=== PATIENT | male | born 1955 | race Caucasian/White ===

== ENCOUNTER → 2017-07-31 11:59 | Outpatient (REF) | payer OTHER, SELFPAY ==
[2017-07-31 16:07] LABS: T4 (Thyroxine) 8.4 ug/dl (4.7-13.3)
[2017-08-02 08:31] LABS: Thyroid Peroxidase Antibodies 9 IU/mL (0-34)
[2017-08-03 10:41] LABS: Estradiol 24.7 pg/mL (7.6-42.6); Triiodothyronine (T3) Free 3.4 pg/mL (2.0-4.4); Vitamin D 25 Hydroxy 26.1 ng/mL (30.0-100.0)
[2017-08-05 18:47] LABS: Testosterone,Free 5.3 pg/mL (6.6-18.1)
[2017-08-07 06:02] LABS: Testosterone, Total, LC/MS 296.1 ng/dL (264.0-916.0)
== END ==
LOC: LAB 11:59
PROVIDERS: Visit Provider Anesthesiology
DX: E03.4 Atrophy of thyroid (acquired) (principal); E07.89 Other specified disorders of thyroid; E34.9 Endocrine disorder, unspecified
CPT/HCPCS: 82652; 82670; 84402; 84436; 84481; 86376

== ENCOUNTER → 2017-11-08 17:59 | Outpatient (CLI) | payer OTHER, SELFPAY ==
[2017-11-08 22:28] LABS: Chol/HDL Ratio 5.1 (1-3.5); Cholesterol 167 mg/dL (140-200); HDL Cholesterol 33 mg/dL (27-67); LDL Cholesterol 96 mg/dL (0-130); Triglycerides 189 mg/dL (30-200); VLDL Cholesterol 38 mg/dL (0-40)
[2017-11-10 18:03] LABS: Estradiol 46.4 pg/mL (7.6-42.6); Testosterone,Free 19.4 pg/mL (6.6-18.1)
[2017-11-14 16:48] LABS: Testosterone, Total, LC/MS 882.8 ng/dL (264.0-916.0)
== END ==
PROVIDERS: Visit Provider Anesthesiology
DX: E03.4 Atrophy of thyroid (acquired) (principal); E07.89 Other specified disorders of thyroid; K63.9 Disease of intestine, unspecified
CPT/HCPCS: 36415; 80061; 82670; 84402; 84403

== ENCOUNTER → 2018-02-20 11:55 | Outpatient (CLI) | payer OTHER, SELFPAY ==
[2018-02-20 12:48] LABS: Basophils % 0.3 % (0.1-2.0); Eosinophils # 0.1 K/mm3 (0.0-0.4); Eosinophils % 1.1 % (0.1-12.0); Hematocrit 48.5 % (42.0-52.0); Hemoglobin 16.5 g/dL (14.1-18.0); Lymphocytes # 1.8 K/mm3 (0.7-4.5); Lymphocytes % 22.4 % (10-50); Mean Corpuscular HGB Conc 33.9 g/dL (31.8-35.4); Mean Corpuscular Hemoglobin 27.9 pg (27.0-31.2); Mean Corpuscular Volume 82.1 fl (80-94); Mean Platelet Volume 7.7 fl (7.4-10.4); Monocytes # 0.5 K/mm3 (0.1-1.0); Neutrophils # 5.6 K/mm3 (1.8-7.8); Neutrophils % 70.2 % (37.0-80.0); Platelet Count 198 K/mm3 (142-424); Red Blood Count 5.91 M/mm3 (4.60-6.20); Red Cell Distribution Width 14.4 % (11.5-17.5)
[2018-02-20 14:20] LABS: Alanine Aminotransferase 32 U/L (12-78); Albumin Level 3.9 gm/dL (3.4-5.0); Albumin/Globulin Ratio 1.3 (1.1-1.8); Alkaline Phosphatase 79 U/L (46-116); Aspartate Amino Transferase 24 U/L (15-37); Blood Urea Nitrogen 11 mg/dL (7-18); Calcium 9.6 mg/dL (8.5-10.1); Carbon Dioxide 30 mmol/L (21.0-32.0); Chloride 103 mmol/L (98-107); Estimated Glomerular Filt Rate 75 ml/min (>60); GFR (African American) 91 ML/MIN (>60); Globulin 3.1 gm/dl (1.3-3.2); Glucose 89 mg/dL (74-106); Sodium 140 mmol/L (136-145); Thyroid Stimulating Hormone 1.19 uIU/ml (0.358-3.740)
[2018-02-21 06:16] LABS: Thyroid Peroxidase Antibodies 13 IU/mL (0-34)
[2018-02-22 09:27] LABS: Estradiol 9.4 pg/mL (7.6-42.6); Testosterone,Total 240 ng/dL (264-916); Triiodothyronine (T3) Free 3.4 pg/mL (2.0-4.4); Vitamin D 25 Hydroxy 40.7 ng/mL (30.0-100.0)
[2018-02-22 15:51] LABS: Testosterone,Free 5.6 pg/mL (6.6-18.1)
== END ==
PROVIDERS: Visit Provider Anesthesiology
DX: E07.89 Other specified disorders of thyroid (principal); E34.9 Endocrine disorder, unspecified
CPT/HCPCS: 36415; 80053; 82652; 82670; 84153; 84402; 84403; 84436; 84443; 84481; 85025; 86376

== ENCOUNTER → 2018-05-01 15:04 | Outpatient (CLI) | payer OTHER, SELFPAY ==
[2018-05-01 18:07] LABS: T4 (Thyroxine) 6.1 ug/dl (4.7-13.3); Thyroid Stimulating Hormone 0.63 uIU/ml (0.358-3.740)
[2018-05-03 17:17] LABS: Triiodothyronine (T3) Free 3.9 pg/mL (2.0-4.4)
== END ==
PROVIDERS: Visit Provider Anesthesiology
DX: E03.4 Atrophy of thyroid (acquired) (principal); E34.9 Endocrine disorder, unspecified; E07.89 Other specified disorders of thyroid
CPT/HCPCS: 36415; 84436; 84443; 84481

== ENCOUNTER → 2018-09-07 07:46 | Outpatient (CLI) | payer OTHER, SELFPAY ==
[2018-09-08 17:26] LABS: Triiodothyronine (T3) Free 3.3 pg/mL (2.0-4.4)
== END ==
PROVIDERS: Visit Provider Obstetrics & Gynecology
DX: R53.83 Other fatigue (principal)
CPT/HCPCS: 84481

== ENCOUNTER → 2018-10-16 17:29 | Outpatient (CLI) | payer OTHER, SELFPAY ==
[2018-10-16 17:34] LABS: MANUAL DIFFERENTIAL MANUAL DIFFERENTIAL (MANUAL DIFF)
[2018-10-16 18:00] LABS: Basophils % 0.5 % (0.1-2.0); Eosinophils # 0.2 K/mm3 (0.0-0.4); Eosinophils % 2.2 % (0.1-12.0); Hematocrit 55.3 % (42.0-52.0); Hemoglobin 17.7 g/dL (14.1-18.0); Lymphocytes # 2.2 K/mm3 (0.7-4.5); Lymphocytes % 25.4 % (10-50); Mean Corpuscular Hemoglobin 28.1 pg (27.0-31.2); Mean Corpuscular Volume 87.8 fl (80-94); Monocytes # 0.6 K/mm3 (0.1-1.0); Monocytes % 6.7 % (1.7-9.3); Neutrophils # 5.7 K/mm3 (1.8-7.8); Neutrophils % 65.2 % (37.0-80.0); Platelet Count 185 K/mm3 (142-424); Red Cell Distribution Width 13.8 % (11.5-17.5); White Blood Count 8.7 K/mm3 (4.8-10.8)
[2018-10-16 18:24] LABS: Alanine Aminotransferase 39 U/L (12-78); Albumin/Globulin Ratio 1.4 (1.1-1.8); Alkaline Phosphatase 66 U/L (46-116); Anion Gap 11.5 mEq/L (5-15); Aspartate Amino Transferase 27 U/L (15-37); Bilirubin,Total 0.8 mg/dL (0.2-1.0); Blood Urea Nitrogen 15 mg/dL (7-18); Calcium 8.9 mg/dL (8.5-10.1); Carbon Dioxide 29 mmol/L (21.0-32.0); Chloride 103 mmol/L (98-107); Creatinine,Serum 1.11 mg/dL (0.70-1.30); Estimated Glomerular Filt Rate 67 ml/min (>60); GFR (African American) 81 ML/MIN (>60); Globulin 2.9 gm/dl (1.3-3.2); Glucose 79 mg/dL (74-106); Potassium 4.5 mmoL/L (3.5-5.1); Sodium 139 mmol/L (136-145); Total Protein,Serum 6.9 gm/dL (6.4-8.2)
[2018-10-16 19:09] LABS: Eosinophils % 3 % (0-3); Lymphocytes % 26 % (10-50); Monocytes % 6 % (2-9); Neutrophils % 65 % (42-76); Platelet Estimate Normal; RBC Morphology Normal; Total Cells Counted 100
[2018-10-29 19:29] LABS: Estradiol 34.8; Testosterone, Total, LC/MS 1224; Testosterone,Free 24.9
== END ==
PROVIDERS: Anesthesiology; Visit Provider Family Medicine
DX: D75.1 Secondary polycythemia (principal); E07.89 Other specified disorders of thyroid; E34.9 Endocrine disorder, unspecified
CPT/HCPCS: 36415; 80053; 82670; 84402; 84403; 85007; 85014; 85018; 85048; 85049

== ENCOUNTER → 2019-03-29 08:15 | Outpatient (CLI) | payer OTHER, SELFPAY ==
[2019-03-29 08:49] LABS: Basophils % 0.4 % (0.1-2.0); Eosinophils # 0.1 K/mm3 (0.0-0.4); Hematocrit 46.1 % (42.0-52.0); Hemoglobin 16.3 g/dL (14.1-18.0); Lymphocytes # 1.6 K/mm3 (0.7-4.5); Lymphocytes % 29.3 % (10-50); Mean Corpuscular HGB Conc 35.4 g/dL (31.8-35.4); Mean Corpuscular Volume 84.5 fl (80-94); Mean Platelet Volume 7.6 fl (7.4-10.4); Monocytes # 0.4 K/mm3 (0.1-1.0); Monocytes % 6.2 % (1.7-9.3); Neutrophils # 3.5 K/mm3 (1.8-7.8); Neutrophils % 62.1 % (37.0-80.0); Platelet Count 195 K/mm3 (142-424); Red Blood Count 5.46 M/mm3 (4.60-6.20); Red Cell Distribution Width 12.7 % (11.5-17.5); White Blood Count 5.6 K/mm3 (4.8-10.8)
[2019-03-29 16:17] LABS: Anion Gap 14.4 mEq/L (5-15); Bilirubin,Total 0.7 mg/dL (0.2-1.0); Blood Urea Nitrogen 14 mg/dL (7-18); Calcium 8.4 mg/dL (8.5-10.1); Carbon Dioxide 30 mmol/L (21.0-32.0); Chloride 104 mmol/L (98-107); Creatinine,Serum 0.95 mg/dL (0.70-1.30); Estimated Glomerular Filt Rate 80 ml/min (>60); GFR (African American) 97 ML/MIN (>60); Glucose 99 mg/dL (74-106); Potassium 4.4 mmoL/L (3.5-5.1); Sodium 144 mmol/L (136-145)
[2019-03-29 16:18] LABS: Alanine Aminotransferase 30 U/L (12-78); Albumin Level 3.7 gm/dL (3.4-5.0); Albumin/Globulin Ratio 1.4 (1.1-1.8); Alkaline Phosphatase 68 U/L (46-116); Aspartate Amino Transferase 16 U/L (15-37); Chol/HDL Ratio 4.5 (1-3.5); Cholesterol 197 mg/dL (140-200); Globulin 2.6 gm/dl (1.3-3.2); HDL Cholesterol 44 mg/dL (27-67); LDL Cholesterol 132 mg/dL (0-130); Thyroid Stimulating Hormone 0.82 uIU/ml (0.358-3.740); Total Protein,Serum 6.3 gm/dL (6.4-8.2); Triglycerides 104 mg/dL (30-200); VLDL Cholesterol 21 mg/dL (0-40)
[2019-04-01 16:43] LABS: Prolactin 6.4 ng/mL (4.0-15.2)
[2019-04-02 13:16] LABS: Testosterone, Total, LC/MS 278.3 ng/dL (264.0-916.0); Testosterone,Free 6.8 pg/mL (6.6-18.1)
== END ==
PROVIDERS: Visit Provider Family Medicine
DX: E34.9 Endocrine disorder, unspecified (principal); I10 Essential (primary) hypertension
CPT/HCPCS: 36415; 80053; 80061; 84146; 84402; 84403; 84443; 85025

== ENCOUNTER → 2019-07-26 18:56 | Outpatient (CLI) | payer OTHER, SELFPAY ==
--- NOTE | 2019-07-30 17:26 | PC.NURSE ---
notified patient of negative COVID 19 results.
[2019-07-30 17:30] LABS: Covid-19 Nasal PCR Sendout Lex NOT DETECTED
== END ==
PROVIDERS: Visit Provider Family Medicine
DX: R50.9 Fever, unspecified (principal)

== ENCOUNTER → 2020-02-02 08:53 | Outpatient (CLI) | payer OTHER, SELFPAY ==
[2020-02-02 12:09] LABS: Coronavirus 19 IgG Antibody Negative (Negative); Coronavirus 19 IgM Antibody Negative (Negative)
== END ==
PROVIDERS: PCP Family Medicine; Visit Provider Family Medicine
DX: Z03.818 Encounter for observation for suspected exposure to other biological agents ruled out (principal)
CPT/HCPCS: 36415; 86328

== ENCOUNTER → 2020-07-02 13:37 | Outpatient (CLI) | payer OTHER, SELFPAY | PROVIDERS: PCP Family Medicine; Visit Provider Ophthalmology | DX: Z01.818 Encounter for other preprocedural examination (principal); Z11.52 Encounter for screening for COVID-19 | CPT/HCPCS: U0003 ==

== ENCOUNTER → 2021-01-14 17:19 | Outpatient (CLI) | payer OTHER, SELFPAY | PROVIDERS: PCP Family Medicine; Visit Provider Family Medicine | DX: Z20.822 Contact with and (suspected) exposure to COVID-19 (principal); U07.1 COVID-19 | CPT/HCPCS: C9803; U0003; U0005 ==

== ENCOUNTER → 2021-01-25 17:51 | Outpatient (CLI) | payer OTHER, SELFPAY | PROVIDERS: PCP Nurse Practitioner Family; Visit Provider Nurse Practitioner Family | DX: Z20.822 Contact with and (suspected) exposure to COVID-19 (principal); U07.1 COVID-19 | CPT/HCPCS: C9803; U0003; U0005 ==

== ENCOUNTER → 2021-02-08 12:20 | Outpatient (CLI) | payer OTHER, SELFPAY ==
[2021-02-08 12:38] LABS: Coronavirus 19, PCR Not Detected (NotDetected); Influenza A, PCR Not Detected (NotDetected); Influenza B, PCR Not Detected (NotDetected)
== END ==
PROVIDERS: PCP Family Medicine; Visit Provider Nurse Practitioner
DX: Z20.822 Contact with and (suspected) exposure to COVID-19 (principal)
CPT/HCPCS: C9803; U0003; U0005

== ENCOUNTER → 2021-02-19 08:32 | Outpatient (CLI) | payer OTHER, SELFPAY ==
[2021-02-19 09:41] LABS: Basophils # 0.1 K/mm3 (0-0.2); Basophils % 1.2 % (0.1-2.0); Eosinophils # 0.3 K/mm3 (0.0-0.4); Eosinophils % 2.7 % (0.1-12.0); Hematocrit 49.2 % (42.0-52.0); Hemoglobin 16.2 g/dL (14.1-18.0); Lymphocytes # 3.2 K/mm3 (0.7-4.5); Lymphocytes % 29.2 % (10-50); Mean Corpuscular Volume 87.9 fl (80-94); Mean Platelet Volume 8.5 fl (7.4-10.4); Monocytes # 0.6 K/mm3 (0.1-1.0); Monocytes % 5.7 % (1.7-9.3); Neutrophils # 6.8 K/mm3 (1.8-7.8); Neutrophils % 61.1 % (37.0-80.0); Platelet Count 267 K/mm3 (142-424); Red Cell Distribution Width 14.2 % (11.5-17.5); White Blood Count 11.1 K/mm3 (4.8-10.8)
[2021-02-19 11:00] LABS: Alanine Aminotransferase 26 U/L (12-78); Albumin Level 4.4 g/dl (3.5-5.0); Albumin/Globulin Ratio 1.7 (1.1-1.8); Alkaline Phosphatase 78 U/L (38-126); Anion Gap 12.6 mEq/L (5-15); Aspartate Amino Transferase 35 U/L (17-59); Bilirubin,Total 0.8 mg/dl (0.2-1.3); Blood Urea Nitrogen 8 mg/dl (9-20); Calcium 9.4 mg/dl (8.4-10.2); Carbon Dioxide 32 mmol/L (22.0-30.0); Chloride 101 mmol/L (98-107); Cholesterol 186 mg/dl (140-200); Estimated Glomerular Filt Rate 97 ml/min (>60); GFR (African American) 117 ML/MIN (>60); Globulin 2.6 g/dL (1.3-3.2); Glucose 99 mg/dl (74-100); HDL Cholesterol 47 mg/dl (40-60); Potassium 4.6 mmoL/L (3.5-5.1); Sodium 141 mmol/L (136-145); Triglycerides 179 mg/dl (30-150); VLDL Cholesterol 36 mg/dL (0-40)
[2021-02-19 11:11] LABS: Direct LDL Cholesterol 103.12 mg/dL (100-129)
[2021-02-19 11:32] LABS: Prostate Specific Ag Screen 3.6 ng/ml (0.0-4.0); Thyroid Stimulating Hormone 1.25 uIU/mL (0.465-4.68)
[2021-02-19 11:50] LABS: Vitamin B12 544 pg/mL (239-931)
== END ==
PROVIDERS: Visit Provider Family Medicine
DX: E78.5 Hyperlipidemia, unspecified (principal); E34.9 Endocrine disorder, unspecified; I10 Essential (primary) hypertension; Z13.21 Encounter for screening for nutritional disorder; Z13.29 Encounter for screening for other suspected endocrine disorder
CPT/HCPCS: 36415; 80053; 80061; 82306; 82607; 84443; 85025; G0103; C9803; U0003; U0005

== ENCOUNTER → 2021-08-09 08:14 | Outpatient (POV) | payer OTHER, SELFPAY | PROVIDERS: Visit Provider Dermatology | DX: Z00.00 Encounter for general adult medical examination without abnormal findings (principal) ==

== ENCOUNTER → 2021-12-27 17:26 | Outpatient (CLI) | payer OTHER, SELFPAY ==
[2021-12-27 19:37] LABS: Coronavirus 19, PCR Not Detected (NotDetected); Influenza A, PCR Not Detected (NotDetected); Influenza B, PCR Not Detected (NotDetected)
== END ==
PROVIDERS: PCP Family Medicine; Visit Provider Nurse Practitioner
DX: Z20.822 Contact with and (suspected) exposure to COVID-19 (principal)
CPT/HCPCS: C9803; U0003; U0005

== ENCOUNTER → 2023-01-27 08:35 | Outpatient (CLI) | payer OTHER, SELFPAY ==
[2023-01-27 09:17] LABS: Alanine Aminotransferase 21 U/L (12-78); Albumin Level 4.1 g/dl (3.5-5.0); Albumin/Globulin Ratio 1.6 (1.1-1.8); Alkaline Phosphatase 76 U/L (38-126); Anion Gap 11.2 mEq/L (5-15); Aspartate Amino Transferase 30 U/L (17-59); Bilirubin,Total 0.7 mg/dl (0.2-1.3); Blood Urea Nitrogen 14 mg/dl (9-20); Calcium 9.6 mg/dl (8.4-10.2); Carbon Dioxide 30 mmol/L (22.0-30.0); Chloride 102 mmol/L (98-107); Chol/HDL Ratio 3.9 (1-3.5); Cholesterol 168 mg/dl (140-200); Estimated Glomerular Filt Rate 84 ml/min (>60); GFR (African American) 102 ML/MIN (>60); Globulin 2.6 g/dL (1.3-3.2); Glucose 116 mg/dl (74-100); HDL Cholesterol 43 mg/dl (40-60); Potassium 4.2 mmoL/L (3.5-5.1); Sodium 139 mmol/L (136-145); Total Protein,Serum 6.7 g/dl (6.3-8.2); Triglycerides 151 mg/dl (30-150); VLDL Cholesterol 30 mg/dL (0-40)
[2023-01-27 09:28] LABS: Direct LDL Cholesterol 88.38 mg/dL (100-129)
== END ==
PROVIDERS: PCP Family Medicine; Visit Provider Family Medicine
DX: I10 Essential (primary) hypertension (principal); E78.5 Hyperlipidemia, unspecified; Z12.5 Encounter for screening for malignant neoplasm of prostate
CPT/HCPCS: 36415; 80053; 80061; G0103

== ENCOUNTER → 2023-04-13 12:08 | Outpatient (CLI) | payer OTHER, SELFPAY ==
--- NOTE | 2023-04-13 12:14 | XR_ITS ---
FINAL REPORT TECHNIQUE: Chest PA & Lateral CLINICAL HISTORY: SUBACUTE COUGH COMPARISON: None FINDINGS: 2 views of the chest were performed. The heart size is normal. The mediastinum is within normal limits. There is no acute cardiopulmonary process. There are no pleural effusions. There is no pneumothorax. The bony thorax appears intact. IMPRESSION: No acute cardiopulmonary process. Reviewed, Interpreted and Dictated by Nikhil Washington MD Transcribed by Asha Milligan Authenticated and [facility]
== END ==
LOC: RAD 12:09
PROVIDERS: PCP Family Medicine; Visit Provider Family Medicine
DX: R05.2 Subacute cough (principal)
CPT/HCPCS: 71046

== ENCOUNTER 2023-05-23 11:37 | Outpatient (CLI) | payer OTHER, SELFPAY ==
--- NOTE | 2023-05-23 11:39 | XR_ITS ---
FINAL REPORT CLINICAL HISTORY: foot pain FINDINGS: Right foot Three views were obtained. There is no acute fracture or dislocation. There are mild degenerative changes. Plantar calcaneal spur is identified. No soft tissue abnormality is identified. IMPRESSION: No acute process. Reviewed, Interpreted and Dictated by Jim Portillo III, MD Transcribed by Cecilia Stewart Authenticated and . [facility]
== END 2023-05-23 23:59 ==
LOC: RAD 11:37
PROVIDERS: PCP Family Medicine; Visit Provider Podiatrist
DX: M79.671 Pain in right foot (principal)
CPT/HCPCS: 73630

== ENCOUNTER 2023-09-18 09:30 | Outpatient (POV) | payer OTHER, SELFPAY | END 2023-09-18 23:59 | disposition home or self-care (01) | LOC: SC 09:31 | PROVIDERS: PCP Family Medicine; Visit Provider Dermatology | DX: Z00.00 Encounter for general adult medical examination without abnormal findings (principal) ==

== ENCOUNTER 2024-05-01 08:47 | Outpatient (CLI) | payer OTHER, SELFPAY ==
[2024-05-01 09:02] LABS: Basophils % 0.4 % (0.1-2.0); Eosinophils # 0.2 K/mm3 (0.0-0.4); Eosinophils % 2.5 % (0.1-12.0); Hematocrit 44.8 % (42.0-52.0); Hemoglobin 15.5 g/dL (14.1-18.0); Lymphocytes # 2.3 K/mm3 (0.7-4.5); Lymphocytes % 28.9 % (10-50); Mean Corpuscular HGB Conc 34.6 g/dL (31.8-35.4); Mean Corpuscular Hemoglobin 28.6 pg (27.0-31.2); Mean Corpuscular Volume 82.7 fl (80-94); Mean Platelet Volume 10.3 fl (7.4-10.4); Monocytes # 0.6 K/mm3 (0.1-1.0); Monocytes % 7.4 % (1.7-9.3); Neutrophils # 4.9 K/mm3 (1.8-7.8); Neutrophils % 60.4 % (37.0-80.0); Platelet Count 233 K/mm3 (142-424); Red Blood Count 5.42 M/mm3 (4.60-6.20); Red Cell Distribution Width 12.5 % (11.5-17.5); White Blood Count 8.1 K/mm3 (4.8-10.8)
[2024-05-01 09:45] LABS: Alanine Aminotransferase 24 U/L (12-78); Albumin Level 4.4 g/dl (3.5-5.0); Alkaline Phosphatase 71 U/L (38-126); Aspartate Amino Transferase 30 U/L (17-59); Bilirubin,Total 0.6 mg/dl (0.2-1.3); Blood Urea Nitrogen 16 mg/dl (9-20); Calcium 9.3 mg/dl (8.4-10.2); Carbon Dioxide 27 mmol/L (22.0-30.0); Chloride 103 mmol/L (98-107); Chol/HDL Ratio 6.6 (1-3.5); Cholesterol 190 mg/dl (140-200); Estimated Glomerular Filt Rate 84 ml/min (>60); GFR (African American) 101 ML/MIN (>60); Globulin 2.2 g/dL (1.3-3.2); Glucose 106 mg/dl (74-100); HDL Cholesterol 29 mg/dl (40-60); Hemoglobin A1C 5.4 % (4.0-6.0); Sodium 137 mmol/L (136-145); Total Protein,Serum 6.6 g/dl (6.3-8.2); Triglycerides 134 mg/dl (30-150); VLDL Cholesterol 27 mg/dL (0-40)
[2024-05-01 10:03] LABS: 25-OH Vitamin D, Total 60.5 ng/mL (30-100)
[2024-05-01 10:16] LABS: Thyroid Stimulating Hormone 1.38 uIU/mL (0.465-4.68)
[2024-05-01 10:35] LABS: Vitamin B12 572 pg/mL (239-931)
[2024-05-01 12:52] LABS: Creatinine,Urine Random 311 mg/dL (Not Estab.)
[2024-05-02 11:24] LABS: Triiodothyronine (T3) Total 112 ng/dL (71-180)
[2024-05-05 22:38] LABS: Testosterone,Free 9.2 pg/mL (6.6-18.1)
[2024-05-12 07:08] LABS: Testosterone, Total, LC/MS 652 ng/dL (.)
== END 2024-05-01 23:59 | disposition home or self-care (01) ==
LOC: LAB 08:48
PROVIDERS: PCP Family Medicine; Visit Provider Family Medicine
DX: E78.5 Hyperlipidemia, unspecified (principal); D75.1 Secondary polycythemia; E34.9 Endocrine disorder, unspecified; Z00.00 Encounter for general adult medical examination without abnormal findings; I10 Essential (primary) hypertension
CPT/HCPCS: 36415; 80053; 80061; 82043; 82306; 82570; 82607; 83036; 83525; 83970; 84402; 84403; 84443; 84480; 85025

== ENCOUNTER 2024-08-07 06:36 | Day surgery (SDC) | payer OTHER, SELFPAY ==
[2024-08-07 07:08] VITALS: BMI 28.8
[2024-08-07] MEDS: LACTATED RINGERS 1000ML 1,000 ML 50 ML IV (07:10)
[2024-08-07 07:15] VITALS: BP 133/75; PULSE 53; RESP 18; TEMP 36.4; O2SAT 98
--- NOTE | 2024-08-07 07:22 | P.PNANES_ITS ---
[facility] Disclaimer: The information contained in this section may have been updated after the patient was seen, as this information can be updated by other users. Medical History (Updated 08/07/24 @ 07:13 by Clifton Davis RN) No significant past medical history Surgical History (Updated 08/07/24 @ 07:14 by Clifton Davis RN) History of cholecystectomy Family History (Updated 08/07/24 @ 07:14 by Clifton Davis RN) Other No significant family history Social History (Updated 08/07/24 @ 07:15 by Clifton Davis RN) Smoking Status: Never smoker alcohol intake: never substance use type: denies use current occupational status: employed Travel in the last 8 weeks: Inside the [place] caffeine: No [facility] Anesthesia Checklist Patient Identification Patient Identification: Arm Band and Verbal (Name & ) Structural Data Admitted From: Home Planned Operative Procedure/s: colonoscopy Consent for Planned Operative Procedure(s) Verified: Yes Verified Documents: Surgical Consent NPO Status Verified Time NPO: 00:00 Chart Verification Results Verified: None Additional verifications Anesthesia Reactions: No Hx Blood Transfusions: No Blood Transfusion Reaction: No Airway Assessment Mallampati Score:: Class II Dentition: Good Dentition Neurological Assessment Level of Consciousness: Awake, Alert and Appropriate Anesthesia Plan Anesthesia Risk discussed: Yes Anesthesia Plan: Verified ASA Class: II Anesthesia Type: MAC
[2024-08-07 07:44] VITALS: O2SAT 98
--- NOTE | 2024-08-07 07:45 | P.HP_ITS ---
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 The examination is deemed medically necessary for surveillance colonoscopy. The patient has been seen, interviewed and examined prior to the procedure by both myself and the anesthesia provider. [facility] Disclaimer: The information contained in this section may have been updated after the patient was seen, as this information can be updated by other users. Medical History (Updated 08/07/24 @ 07:46 by Zach Meek II, MD) No significant past medical history Surgical History (Updated 08/07/24 @ 07:14 by Clifton Davis RN) History of cholecystectomy Family History (Updated 08/07/24 @ 07:14 by Clifton Davis RN) Other No significant family history Social History (Updated 08/07/24 @ 07:23 by Arthur Andino CRNA) Smoking Status: Never smoker alcohol intake: never substance use type: denies use current occupational status: employed Travel in the last 8 weeks: Inside the [place] caffeine: No Have you lived/traveled outside US in past 30 days?: No Contact w/someone who lives/traveled outside US past 30 days?: No Exposure to someone with infectious disease in past 14 days?: No Do you have a fever (greater than 100.4 F or 38 C)?: No Have you tested positive for COVID-19: No Exposed to someone with COVID-19 in past 14 days?: Yes Do you have a sore throat?: No Do you have a cough?: No Do you have any weakness?: No Are you experiencing any nausea/vomitting?: No Do you have any diarrhea?: No Are you experiencing any unusual bleeding?: No Do you have any muscle aches/pain?: No Do you have any abdominal pain?: No Are you experiencing loss of taste or smell?: No Other Medical History Have you received the Pneumonia Vaccine: Yes Review of Systems Review of Systems Review of systems (narrative): Negative *Cardiovascular Comments: Negative *Gastrointestinal Comments: Negative *Genitourinary Comments: Negative *Musculoskeletal Comments: Negative *Neurologic Comments: Negative Meds Home Medications and Allergies Home Medications ?Medication ?Instructions ?Recorded ?Confirmed ?Type valacyclovir 1 gram tablet 1,000 mg PO NEEDED PRN fever 08/23/18 08/07/24 History blister losartan 50 mg-hydrochlorothiazide 1 tab PO DAILY 05/24/23 08/07/24 History 12.5 mg tablet lovastatin 20 mg tablet 10 mg PO DAILY 05/24/23 08/07/24 History testosterone 20.25 mg topical DAILY 05/24/23 08/07/24 History New Prescriptions to Start Prescriptions: Allergies Allergy/AdvReac Type Severity Reaction Status Date / Time No Known Allergies Allergy Verified 05/24/23 13:10 Exam Data for Last 24 hours Vital signs and Labs for Last 24 Hours: Temp Pulse Resp BP Pulse Ox O2 Del Method O2 Flow Rate 97.6 F 53 L 18 133/75 98 Nasal Cannula 5 08/07/24 07:15 08/07/24 07:15 08/07/24 07:15 08/07/24 07:15 08/07/24 07:15 08/07/24 07:44 08/07/24 07:44 I & O for Last 24 hours: Intake & Output 08/04/24 08/05/24 08/06/24 08/07/24 23:59 23:59 23:59 23:59 Weight 190 lb *Routine HEENT Exam Head: Present normocephalic Eye: Present EOMI and PERRL ENT: Present mucous membranes moist *Routine Neck Exam Neck: Present supple *Routine Respiratory Exam Respiratory: Present CTA bilaterally *Routine Cardiovascular Exam Cardiovascular: Present RRR *Routine Abdominal Exam Abdominal: Present soft and normoactive bowel sounds; Absent tenderness *Routine Rectal Exam Rectal:: deferred *Routine Genitalia Exam Genitalia:: deferred *Routine Extremities Exam Extremities: Absent cyanosis, clubbing or edema *Routine Skin Exam Skin: Present warm; Absent rash *Routine Neurological Exam Neurological: Present alert and oriented X3 Assessment and Plan *Assessment and plan (1) Personal history of adenomatous and serrated colon polyps: Status: Acute Category: Medical Code(s): Z86.0101 - Personal history of adenomatous and serrated colon polyps Plan A/P: 1. Personal history of adenomatous colon polyps is the preprocedural diagnosis. The patient will be anesthetized/sedated using MAC sedation. The patient has been seen and examined. Cardiac and lung assessment prior to the examination is stable. Proceed with planned surveillance colonoscopy.
--- NOTE | 2024-08-07 07:47 | P.PCN_ITS ---
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 He did have a colonoscopy with tx 5 or 6 years ago in [place] and had 2 or 3 small benign polyps (small adenomas) which were removed. He reports no abdominal pain, weight loss, change in his bowel habits or rectal bleeding. He reports no family history of colon cancer. He did have a small amount of bright red blood a while back when he developed constipation and felt that he may have a small tear/fissure but this has resolved. Procedure: Prior to the procedure, a history and physical exam was performed, and patient's medications and allergies were reviewed. The risks, benefits and alternatives of the sedation and procedure were discussed with the patient. All questions were answered and informed consent was obtained. The patient was brought to the procedure room. Patient identification and proposed procedure were verified by the physician and the nurse. The patient was placed in a left lateral decubitus position and the scope was passed under direct vision. Throughout the procedure, the patient's blood pressure, pulse, and oxygen saturations were monitored continuously. The colonoscopy was accomplished without difficulty. The patient tolerated the procedure well. Findings: On digital rectal examination there was normal rectal tone. There were no external hemorrhoids. There was a healed posterior midline anal fissure. The prostate was 2+, smooth, soft, symmetric without nodules. The colonoscope was introduced through the anal canal to the rectum and advanced to the cecum. The ileocecal valve and appendiceal orifice were identified. The scope was advanced a short distance into the ileum which appeared grossly normal. The scope was then withdrawn into the colon. The cecum, ascending, transverse, descending and sigmoid colon were grossly normal. There was a 3 mm small flat hyperplastic appearing polyp in the rectosigmoid that was removed via cold snare polypectomy. The rectum was normal. There were no mucosal abnormalities identified. Upon retroflexion within the rectum there were grade 1-2 internal hemorrhoids. There was a very small hypertrophied anal papilla. The preparation was excellent throughout with [place] Preparation Score of 9. The cecal time was 12 minutes. Impression: 1. Diminutive hyperplastic appearing 3 mm rectosigmoid polyp 2. Grade 1-2 internal hemorrhoids with small hypertrophied anal papilla (secondary to healed posterior midline anal fissure) Plan: I will follow-up the polyp histology and if the polyp is hyperplastic, he will not require surveillance colonoscopy again for 10 years. I would encourage psyllium fiber supplementation on a daily maintenance basis.
[2024-08-07 08:06] VITALS: BP 90/55; PULSE 54; RESP 16; TEMP 36.1; O2SAT 95
[2024-08-07 08:16] VITALS: BP 92/58; PULSE 55; RESP 16; O2SAT 98
[2024-08-07 08:26] VITALS: BP 91/60; PULSE 61; RESP 16; O2SAT 98
[2024-08-07 08:36] VITALS: BP 100/64; PULSE 64; RESP 16; O2SAT 98
== END 2024-08-07 08:59 | disposition home or self-care (01) ==
PROVIDERS: PCP Family Medicine; Visit Provider Internal Medicine Gastroenterology
PROC: 0DJD8ZZ Inspection of Lower Intestinal Tract, Via Natural or Artificial Opening Endoscopic (ICD-10-PCS; CPT 45378; principal; 2024-08-07 08:00)
DX: Z12.11 Encounter for screening for malignant neoplasm of colon (principal); Z86.0101 Personal history of adenomatous and serrated colon polyps; K63.5 Polyp of colon; K64.8 Other hemorrhoids
CPT/HCPCS: 45385; J7120